=== PATIENT | female | born 1995 | race Caucasian/White ===

== ENCOUNTER 2017-09-14 16:36 | Emergency (ER) | payer OTHER, BC ==
[2017-09-14] MEDS ORDERED: Sodium Chloride 0.9% 1,000 ML IV ONE (17:29)
[2017-09-14] MEDS ORDERED: Sodium Chloride 0.9% 2.5 ML Syringe FLUSH PRN (17:29)
[2017-09-14] MEDS ORDERED: Ketorolac 30 MG/ML SDV IVPUSH ONE (17:29)
[2017-09-14] MEDS ORDERED: Sodium Chloride 0.9% 10 ML Syringe FLUSH PRN (17:29)
[2017-09-14] MEDS ORDERED: Ondansetron 4 MG/2 ML SDV IVPUSH ONE (17:29)
--- NOTE | 2017-09-14 18:08 | EDM.PDOC ---
ED HPI GENERAL MEDICAL PROBLEM - General Chief Complaint: General Stated Complaint: INFLUENZA A Time Seen by Provider: 09/14/17 17:24 Source of Information: Reports: Patient History Limitations: Reports: No Limitations - History of Present Illness INITIAL COMMENTS - FREE TEXT/NARRATIVE: History of present illness: []Patient was seen at another clinic and had an influenza A swab that was negative. Patient has been vomiting and she cannot tolerate body aches, nausea, headaches, sinus pressure, sore throat and pain in her eye sockets because she cannot keep down pain meds. Patient did have her flu shot this year. Patient's boyfriend tested positive for influenza A last week. Review of systems: As per history of present illness and below otherwise all systems reviewed and negative. Past medical history: As per history of present illness and as reviewed below otherwise noncontributory. Surgical history: As per history of present illness and as reviewed below otherwise noncontributory. Social history: No reported history of drug or alcohol abuse. Family history: As per history of present illness and as reviewed below otherwise noncontributory. Physical exam: General: Well developed, well nourished in NAD HEENT: Atraumatic, normocephalic, pupils reactive, negative for conjunctival pallor or scleral icterus, mucous membranes moist, throat clear, neck supple, nontender, trachea midline. Lungs: Clear to auscultation, breath sounds equal bilaterally, chest nontender. Heart: S1S2, regular, negative for clicks, rubs, or JVD. Abdomen: Soft, nondistended, nontender. Negative for masses or hepatosplenomegaly. Negative for costovertebral tenderness. Pelvis: Stable nontender. Genitourinary: Deferred. Rectal: Deferred. Extremities: Atraumatic, negative for cords or calf pain. Neurovascular unremarkable. Neuro: Awake, alert, oriented. Cranial nerves II through XII unremarkable. Cerebellum unremarkable. Motor and sensory unremarkable throughout. Exam nonfocal. Diagnostics: []negative for influenza A and B Therapeutics: []IV fluids Toradol and Zofran Impression: []flu Plan: []fluids, Zofran, Motrin follow-up PMD Definitive disposition and diagnosis as appropriate pending reevaluation and review of above. Generalized Pain Score (Numeric/FACES): 6 - Related Data Allergies Allergy/AdvReac Type Severity Reaction Status Date / Time No Known Allergies Allergy Verified 01/03/16 00:30 Home Meds: Home Meds Ondansetron [Zofran ODT] 4 mg PO Q8H PRN #16 tab.dis 09/14/17 [Rx] Past Medical History [employer] History: Reports: Psychiatric History: Reports: Depression - Past Surgical History HEENT Surgical History: Reports: Tonsillectomy, Other (See Below) Social & Family History - Family History Musculoskeletal: Reports: Arthritis, Osteoporosis Neurological: Reports: Dementia Psychiatric: Reports: ADD Oncologic: Reports: Colon - Tobacco Use Smoking Status *Q: Never Smoker Second Hand Smoke Exposure: Yes - Caffeine Use Caffeine Use: Reports: None - Recreational Drug Use Recreational Drug Use: No ED ROS GENERAL - Review of Systems Review Of Systems: See Below (see history of present illness) ED EXAM, GENERAL - Physical Exam Exam: See Below (see history of present illness) Course - Vital Signs Last Recorded V/S: Last Vital Signs Temp 99.0 F 09/14/17 17:07 Pulse 125 H 09/14/17 17:07 Resp 20 09/14/17 17:07 BP 110/63 09/14/17 17:07 Pulse Ox 100 09/14/17 17:07 - Orders/Labs/Meds Orders: Active Orders 24 hr Category Date Time Status Sodium Chloride 0.9% [Normal Saline] 1,000 ml Med 09/14/17 17:29 Active IV .Bolus Sodium Chloride 0.9% [Saline Flush] Med 09/14/17 17:29 Active 10 ml FLUSH ASDIRECTED PRN Sodium Chloride 0.9% [Saline Flush] Med 09/14/17 17:29 Active 2.5 ml FLUSH ASDIRECTED PRN Saline Lock Insert [OM.PC] Stat Oth 09/14/17 17:28 Ordered Medication Orders Sodium Chloride (Normal Saline) 1,000 mls @ 999 mls/hr IV .Bolus ONE Stop: 09/14/17 18:29 Last Admin: 09/14/17 18:00 Dose: 999 mls/hr Sodium Chloride (Saline Flush) 10 ml FLUSH ASDIRECTED PRN PRN Reason: Keep Vein Open Sodium Chloride (Saline Flush) 2.5 ml FLUSH ASDIRECTED PRN PRN Reason: Keep Vein Open Meds: Medications Generic Name Dose Route Start Last Admin Trade Name Freq PRN Reason Stop Dose Admin Sodium Chloride 1,000 mls @ 999 mls/hr 09/14/17 17:29 09/14/17 18:00 Normal Saline IV 09/14/17 18:29 999 mls/hr .Bolus ONE Administration Sodium Chloride 10 ml 09/14/17 17:29 Saline Flush FLUSH ASDIRECTED PRN Keep Vein Open Sodium Chloride 2.5 ml 09/14/17 17:29 Saline Flush FLUSH ASDIRECTED PRN Keep Vein Open Discontinued Medications Generic Name Dose Route Start Last Admin Trade Name Freq PRN Reason Stop Dose Admin Ketorolac Tromethamine 30 mg 09/14/17 17:29 09/14/17 17:59 Toradol IVPUSH 09/14/17 17:30 30 mg ONETIME ONE Administration Ondansetron HCl 4 mg 09/14/17 17:29 09/14/17 17:59 Zofran IVPUSH 09/14/17 17:30 4 mg ONETIME ONE Administration Departure - Departure Time of Disposition: 18:30 Disposition: Home, Self-Care 01 Condition: Good Clinical Impression: Viral syndrome - Discharge Information Prescriptions: Ondansetron [Zofran ODT] 4 mg PO Q8H PRN #16 tab.dis PRN Reason: Nausea Referrals: Mariza Cartagena NP [Primary Care Provider] - Forms: ED Department Discharge Additional Instructions: The following information is given to patients seen in the emergency department who are being discharged to home. This information is to outline your options for follow-up care. We provide all patients seen in our emergency department with a follow-up referral. The need for follow-up, as well as the timing and circumstances, are variable depending upon the specifics of your emergency department visit. If you don't have a primary care physician on staff, we will provide you with a referral. We always advise you to contact your personal physician following an emergency department visit to inform them of the circumstance of the visit and for follow-up with them and/or the need for any referrals to a consulting specialist. The emergency department will also refer you to a specialist when appropriate. This referral assures that you have the opportunity for follow-up care with a specialist. All of these measure are taken in an effort to provide you with optimal care, which includes your follow-up. Under all circumstances we always encourage you to contact your private physician who remains a resource for coordinating your care. When calling for follow-up care, please make the office aware that this follow-up is from your recent emergency room visit. If for any reason you are refused follow-up, please contact the [facility] Emergency Department at and asked to speak to the emergency department charge nurse. Beau Yao, edward rivero follow-up with the primary care physician as needed [facility] [address] [place] [id number] - My Orders Last 24 Hours: My Active Orders 09/14/17 17:28 Saline Lock Insert [OM.PC] Stat 09/14/17 17:29 Sodium Chloride 0.9% [Normal Saline] 1,000 ml IV .Bolus Sodium Chloride 0.9% [Saline Flush] 10 ml FLUSH ASDIRECTED PRN Sodium Chloride 0.9% [Saline Flush] 2.5 ml FLUSH ASDIRECTED PRN - Assessment/Plan Last 24 Hours: My Active Orders 09/14/17 17:28 Saline Lock Insert [OM.PC] Stat 09/14/17 17:29 Sodium Chloride 0.9% [Normal Saline] 1,000 ml IV .Bolus Sodium Chloride 0.9% [Saline Flush] 10 ml FLUSH ASDIRECTED PRN Sodium Chloride 0.9% [Saline Flush] 2.5 ml FLUSH ASDIRECTED PRN
[2017-09-15 04:13] VITALS: BP 117/72
== END 2017-09-14 19:25 | disposition home or self-care (01) ==
LOC: MW.ED 16:36
DX: J11.1 Influenza due to unidentified influenza virus with other respiratory manifestations (principal); B34.9 Viral infection, unspecified; Z77.22 Contact with and (suspected) exposure to environmental tobacco smoke (acute) (chronic)
CPT/HCPCS: 87804; 96361; 96374; 96375; 99283; J1885; J2405; J7040

== ENCOUNTER 2020-06-15 07:40 | Day surgery (SDC) | payer OTHER ==
[~2020-06-15 07:40] MED LIST: Lactated Ringers 1,000 ML IV SCH
[2020-06-15] MEDS ORDERED: Propofol 200 MG/20 ML SDV ONE (08:15)
[2020-06-15] MEDS ORDERED: Ondansetron 4 MG/2 ML SDV ONE (08:15)
[2020-06-15] MEDS ORDERED: Doxycycline 100 MG Cap PO SCH (08:15)
[2020-06-15] MEDS ORDERED: Doxycycline 200 MG in Sodium Chloride 0.9% 250 ML IV SCH (08:15)
[2020-06-15] MEDS ORDERED: Midazolam 1 MG/ML 2 ML SDV ONE (08:15)
[2020-06-15] MEDS ORDERED: Dexamethasone 4 MG/ML 5 ML MDV ONE (08:15)
[2020-06-15] MEDS ORDERED: fentaNYL 250 MCG/5 ML SDV ONE (08:15)
--- NOTE | 2020-06-15 08:25 | PCM.PREANE ---
Preanesthetic Assessment - Anesthesia/Transfusion/Family Hx Anesthesia History: Prior Anesthesia Without Reaction Family History of Anesthesia Reaction: No Transfusion History: No Prior Transfusion(s) - Review of Systems General: No Symptoms Pulmonary: No Symptoms Cardiovascular: No Symptoms Gastrointestinal: No Symptoms Neurological: No Symptoms Other: Reports: None - Physical Assessment NPO Status Date: 06/14/20 Height: 5 ft 8 in Weight: 110.223 kg ASA Class: 5E Emergency Mental Status: Alert & Oriented x3 Airway Class: Mallampati = 2 Dentition: Reports: Normal Dentition ROM/Head Extension: Full Lungs: Clear to Auscultation, Normal Respiratory Effort Cardiovascular: Regular Rate, Regular Rhythm - Allergies Allergies/Adverse Reactions: Allergies Allergy/AdvReac Type Severity Reaction Status Date / Time No Known Allergies Allergy Verified 06/09/20 13:55 - Blood Blood Available: No - Anesthesia Plan Pre-Op Medication Ordered: None - Acknowledgements Anesthesia Type Planned: General Anesthesia Pt an Appropriate Candidate for the Planned Anesthesia: Yes Alternatives and Risks of Anesthesia Discussed w Pt/Guardian: Yes Pt/Guardian Understands and Agrees with Anesthesia Plan: Yes PreAnesthesia Questionnaire Genitourinary History: Reports: [employer]al [employer]GER [employer] History: Reports: Musculoskeletal History: Reports: Other (See Below) Other Musculoskeletal History: hx of dislocated elbow as a child Psychiatric History: Reports: Anxiety, Depression Endocrine/Metabolic History: Reports: Hypothyroidism, Obesity/BMI 30+ Other Endocrine/Metabolic History: has taken Levothyroxine in the past- not currently - Past Surgical History Head Surgeries/Procedures: Reports: None Female Surgical History: Reports: Lithotripsy/ESWL - SUBSTANCE USE Smoking Status *Q: Former Smoker Tobacco Use Within Last Twelve Months: No Recreational Drug Use History: No - HOME MEDS Home Medications: Home Meds FLUoxetine [PROzac] 20 mg PO DAILY 06/09/20 [History] Pnv No.95/Ferrous Fum/Folic AC [ Caplet] 1 cap PO DAILY 06/09/20 [History] - CURRENT (IN HOUSE) MEDS Current Meds: Current Medications Doxycycline Hyclate (Vibramycin) 200 mg PO ONETIME [facility] Last Admin: 06/15/20 08:23 Dose: 200 mg Documented by: Lactated Ringer's (Ringers, Lactated) 1,000 mls @ 125 mls/hr IV ASDIRECTED [facility] Last Admin: 06/15/20 08:23 Dose: 125 mls/hr Documented by: Discontinued Medications Dexamethasone (Dexamethasone) Confirm Administered Dose 20 mg .ROUTE .STK-MED ONE Stop: 06/15/20 08:16 Fentanyl (Sublimaze) Confirm Administered Dose 250 mcg .ROUTE .STK-MED ONE Stop: 06/15/20 08:16 Lidocaine HCl (Xylocaine-Mpf 1%) Confirm Administered Dose 5 ml .ROUTE .STK-MED ONE Stop: 06/15/20 08:16 Midazolam HCl (Versed 1 Mg/Ml) Confirm Administered Dose 2 mg .ROUTE .STK-MED ONE Stop: 06/15/20 08:16 Ondansetron HCl (Zofran) Confirm Administered Dose 4 mg .ROUTE .STK-MED ONE Stop: 06/15/20 08:16 Propofol (Diprivan 20 Ml) Confirm Administered Dose 200 mg .ROUTE .STK-MED ONE Stop: 06/15/20 08:16
[2020-06-15] MEDS ORDERED: ePHEDrine 50 MG/ML SDV ONE (10:20)
[2020-06-15] MEDS ORDERED: Sodium Chloride 0.9% 20 ML ONE (10:21)
[2020-06-15] MEDS ORDERED: fentaNYL 100 MCG/2 ML SDV IVPUSH PRN (10:27)
[2020-06-15] MEDS ORDERED: Glycopyrrolate 0.2 MG/ML SDV ONE (10:29)
[2020-06-15] MEDS ORDERED: Ketorolac 30 MG/ML SDV IVPUSH ONE (10:35)
--- NOTE | 2020-06-15 10:39 | PCM.OPNOTE ---
- General Post-Op/Procedure Note Date of Surgery/Procedure: 06/15/20 Operative Procedure(s): Suction dilation & curettage Findings: 8-week size anteverted uterus Small amount of products of conception Pre Op Diagnosis: 25yo with empty gestational sac and early loss Post-Op Diagnosis: 25yo with empty gestational sac and early loss Anesthesia Technique: MAC Primary Surgeon: Raquel Orosco Anesthesia Provider: Josias Mclean Pathology: Products of conception Fluid Replacement, Intraop: 850 EBL in mLs: 300 Complications: None Condition: Good Free Text/Narrative:: Doxycycline as pre-op antibiotic prophylaxis Rhogam post-op
--- NOTE | 2020-06-15 10:52 | PCM48HPAN ---
Post Anesthesia Note - EVALUATION WITHIN 48HRS OF ANESTHETIC Vital Signs in Normal Range: Yes Patient Participated in Evaluation: Yes Respiratory Function Stable: Yes Airway Patent: Yes Cardiovascular Function Stable: Yes Hydration Status Stable: Yes Pain Control Satisfactory: Yes Nausea and Vomiting Control Satisfactory: Yes Mental Status Recovered: Yes Vital Signs: Last Vital Signs Temp 97.5 F 06/15/20 10:37 Pulse 64 06/15/20 10:48 Resp 16 06/15/20 10:48 BP 102/61 06/15/20 10:48 Pulse Ox 100 06/15/20 10:48
--- NOTE | 2020-06-15 10:52 | PCM.POSTAN ---
POST ANESTHESIA ASSESSMENT - MENTAL STATUS Mental Status: Alert, Oriented - VITAL SIGNS Vital Signs: Last Vital Signs Temp 97.5 F 06/15/20 10:37 Pulse 64 06/15/20 10:48 Resp 16 06/15/20 10:48 BP 102/61 06/15/20 10:48 Pulse Ox 100 06/15/20 10:48 - RESPIRATORY Respiratory Status: Respiratory Rate WNL, Airway Patent, O2 Saturation Stable - CARDIOVASCULAR CV Status: Pulse Rate WNL, Blood Pressure Stable - GASTROINTESTINAL GI Status: No Symptoms - POST OP HYDRATION Hydration Status: Adequate & Stable
--- NOTE | 2020-06-15 11:28 | PCM48HPAN ---
Post Anesthesia Note - EVALUATION WITHIN 48HRS OF ANESTHETIC Vital Signs in Normal Range: Yes Patient Participated in Evaluation: Yes Respiratory Function Stable: Yes Airway Patent: Yes Cardiovascular Function Stable: Yes Hydration Status Stable: Yes Pain Control Satisfactory: Yes Nausea and Vomiting Control Satisfactory: Yes Mental Status Recovered: Yes Vital Signs: Last Vital Signs Temp 36.4 C 06/15/20 10:37 Pulse 62 06/15/20 10:58 Resp 15 06/15/20 10:58 BP 102/57 L 06/15/20 10:58 Pulse Ox 100 06/15/20 10:58 - COMMENTS/OBSERVATIONS Free Text/Narrative:: Denies any complaints and states she is ready to go home.
[2020-06-15 13:19] VITALS: BP 120/69; PULSE 87
--- NOTE | 2020-06-15 14:41 | OR ---
SURGEON: Raquel Orosco MD DATE OF PROCEDURE: 06/15/2020 PREOPERATIVE DIAGNOSIS: A 25-year-old, G3, P2, with empty gestational sac and early loss. POSTOPERATIVE DIAGNOSIS: A 25-year-old, G3, P2, with empty gestational sac and early loss. PRIMARY SURGEON: Raquel Orosco MD PROCEDURE PERFORMED: Suction dilation and curettage. ANESTHESIA: MAC by Dr. Mclean. ESTIMATED BLOOD LOSS: 300 mL. IV FLUIDS: 850 mL. FINDINGS: An 8-week sized anteverted uterus that sounded to 9 cm. Small amount of products of conception. INDICATIONS: This is a 25-year-old, G3, P2, who presented for surgery for early loss. Prior ultrasound had demonstrated a gestational sac without pole, and with subsequent ultrasonographic monitoring, no pole developed. This was discussed with the patient, then diagnosis of early loss was made. Via telephone in clinic, the treatment options including expectant medical and surgical management were reviewed with the patient, and she desired surgical management due to family history of miscarriages and fear of heavy bleeding at home. Prior to the procedure, the risks, benefits, and alternatives were reviewed again with the patient including expectant management, medical management, and surgical management. The risks included infection; bleeding with possible need for transfusion; injury to surrounding organs, vessels, or nerves; uterine adhesions with subsequent decreased fertility; anesthesia complications; and . The patient voiced understanding of these and desired to proceed with suction dilation and curettage. DESCRIPTION OF PROCEDURE: The patient was taken to the operating room where MAC was obtained. She was placed in a dorsal lithotomy position with legs in Yellofins stirrups. Exam under anesthesia was performed and revealed an 8-week sized anteverted uterus. The patient was prepared and draped and the bladder was emptied. A Graves speculum was inserted into the vagina. The anterior lip of the cervix was grasped with an Allis clamp. The uterus was sounded to 9 cm. The cervix was sequentially dilated to size 8 with Hegar dilators. The suction was tested and was found to be adequate. A size 7 mm curved suction curette was introduced into the fundus and vacuum applied. The products of her conception were removed from the uterus with the suction curette rotating on the outward movement. After approximately four passes of the suction, a small sharp curette was inserted into the uterus and used to curettage the uterus until a gritty texture was noted in all areas. The suction cannula was then reintroduced into the uterus to clear all remaining clots and products of conception. There was minimal bleeding. Postoperative exam revealed a 6-week size uterus that was firm. The patient tolerated the procedure well. Preoperative doxycycline was given for antibiotic prophylaxis. RhoGAM was given in the postoperative recovery unit as the patient was Rh negative. [id number] / MODL /[id number] MTDD
== END 2020-06-15 12:05 | disposition home or self-care (01) ==
LOC: MW.SDS 07:40
PROVIDERS: ATTEND Obstetrics & Gynecology
DX: O02.89 Other abnormal products of conception (principal); F41.9 Anxiety disorder, unspecified; F32.9 Major depressive disorder, single episode, unspecified; E03.9 Hypothyroidism, unspecified; E66.9 Obesity, unspecified; Z87.891 Personal history of nicotine dependence; Z79.899 Other long term (current) drug therapy; Z68.36 Body mass index [BMI] 36.0-36.9, adult
CPT/HCPCS: 59820; 85027; 86850; 86900; 86901; A9270; J1100; J2001; J2250; J2405; J2704; J2792; J3010; J3490; J7120; 36430; 88305